=== PATIENT | female | born 1995 | race Caucasian/White ===

== ENCOUNTER → 2018-11-12 | Outpatient (CLI) | payer BC ==
--- NOTE | 2018-11-13 08:34 | KCIC ---
First trimester ultrasound less than 14 weeks: Transabdominal and transvaginal sonogram. Clinical indications: Unsure of gestational age. Evaluation for size and dates. Findings: Transabdominal study: The uterus is poorly visualized. Therefore, transvaginal sonography will be performed. No adnexal mass is seen. Neither ovary is visualized. No free fluid is evident. Transvaginal study: Number of fetuses: 2 Baby A Average crown-rump length: 1.16 cm cm which corresponds to an approximate gestational age of 7 weeks and 2 days +/- 5 days. EDC is June 29, 2019. heart rate is 139 bpm. Baby B Average crown-rump length: 0.80 cm which corresponds to an approximate gestational age of 6 weeks and 6 days +/- 5 days. EDC is July 03, 2019. heart flutter is visualized during real-time but the M-mode would not register the heart rate. Sac shape and amniotic fluid volume: Normal. Placenta location: Indeterminate due to the early stage of gestation. Cervical length: Greater than 3 cm. Extrachorionic hemorrhage: None. Uterus: No uterine fibroids are seen. Maternal ovaries: Right ovary: 2.7 cm x 1.7 cm x 1.4 cm. Normal. Color-flow Doppler: Present Left ovary: 2.3 cm x 1.1 cm x 1.1 cm. Normal. Color-flow Doppler: Present Adnexa: no adnexal masses are seen. Free fluid: None. Impression: Twin intrauterine gestation with approximate gestational age of 7 weeks with an average EDC of July 01, 2019. heart rate of Baby A is 139 beats per minute. heart flutter of Baby B is visualized during real-time, but the M-mode tracing would not register the heart rate. Therefore, recommend a follow-up transvaginal sonogram in 5 days to ensure viability of the second twin. Electronically signed by: Porter Lund MD (11/13/2018 8:31 AM) [id number]
== END | disposition home or self-care (01) ==
LOC: KCIC US 13:45
PROVIDERS: ATTEND Emergency Medicine
DX: Z34.81 Encounter for supervision of other normal pregnancy, first trimester (principal); Z3A.01 Less than 8 weeks gestation of pregnancy
CPT/HCPCS: 76801